=== PATIENT | male | born 1945 | race Caucasian/White ===

== ENCOUNTER 2020-05-24 15:28 | Outpatient (RCR) | payer MEDICARE, BC, SELFPAY ==
[2020-05-24] MEDS: COVID-19 VACC, MRNA(PFIZER)/PF 30 MCG/0.3 ML SYRINGE IM (10:52)
[2020-06-14] MEDS: COVID-19 VACC, MRNA(PFIZER)/PF 30 MCG/0.3 ML SYRINGE IM (11:04)
== END 2020-05-24 23:59 ==
LOC: IMMUN 15:28
PROVIDERS: Visit Provider Family Medicine
DX: Z23 Encounter for immunization (principal)
CPT/HCPCS: 0001A; 0002A